=== PATIENT | female | born 1975 | race Caucasian/White ===

== ENCOUNTER 2019-10-23 14:57 | Outpatient (CLI) | payer BC, SELFPAY ==
--- NOTE | ~2019-10-23 | MM_ITS ---
EXAMINATION: MM screening [facility] BI w idris HISTORY: Screening mammogram TECHNIQUE: Craniocaudal and mediolateral oblique 3-D tomosynthesis images were obtained and synthetic 2-D images were generated. CAD analysis was submitted and interpreted. COMPARISON: 05/08/2017 diagnostic right digital mammogram 04/15/2017 bilateral digital screening mammogram BREAST PARENCHYMAL COMPOSITION: There are scattered areas of fibroglandular density. FINDINGS: There is no evidence of suspicious mass, calcification, or architectural distortion to sugg est malignancy in either breast. There has been no suspicious interval change. IMPRESSION: 1. No mammographic evidence of malignancy. 2. Recommend routine screening mammography in one year. BI-RADS Category 1: Negative Reviewed, dictated and finalized at location A.
== END 2019-10-23 14:58 | disposition home or self-care (01) ==
LOC: ANHIMG 15:15
PROVIDERS: PCP Family Medicine; Visit Provider Family Medicine
DX: Z12.31 Encounter for screening mammogram for malignant neoplasm of breast (principal)
CPT/HCPCS: 77063; 77067

== ENCOUNTER → 2020-05-25 13:13 | Outpatient (CLI) | payer BC, SELFPAY ==
--- NOTE | ~2020-05-25 | XR_ITS ---
XR hand RT min 3V DATE: 05/25/2020 13:24 INDICATION: Injury. Pain and swelling. TECHNIQUE: 3 views COMPARISON: None FINDINGS: No fracture or dislocation, periosteal reaction or bone destruction, erosive change or baldo drocalcinosis. Joint spaces are preserved. IMPRESSION: Normal Reviewed, dictated and finalized at location A. CULTURIST IMPRESSION: Normal
== END ==
PROVIDERS: PCP Family Medicine; Visit Provider Family Medicine
DX: S69.81XA Other specified injuries of right wrist, hand and finger(s), initial encounter (principal)
CPT/HCPCS: 73130

== ENCOUNTER 2022-03-08 00:33 | Day surgery (SDC) | payer BC, SELFPAY ==
[2022-02-26 10:54] VITALS: BMI 34.7
[2022-03-08 08:06] VITALS: BP 114/56; PULSE 78; RESP 78; TEMP 36.3; O2SAT 100; BMI 33.5
[2022-03-08] MEDS: LACTATED RINGERS 1,000 ML 150 ML IV CONT (08:19)
--- NOTE | 2022-03-08 08:49 | PM.IMHP ---
H&P: HPI History of Present Illness Date/Time: 03/08/22 08:49 Chief Complaint: GE reflux and neoplasia screening. Narrative: This is a 46-year-old white female patient presents for neoplasia screening colonoscopy. Current weight appetite bowel movements are normal. She denies abdominal pain. She has had no bleeding. Family history noncontributory. Neoplasia screening colonoscopy will be performed today. Patient reports for many years has had heartburn. Typically controlled with Tums. This apparently has intensified she has taken more Tums recently. Several months ago was started on pantoprazole 40mg p.o. daily. Since that happened she had 1 event of nocturnal regurgitation she had digestive juices regurgitate her mouth. She no longer has heartburn. She has no difficulty swallowing. She has had some hoarseness for which she sees ENT. In currently being treated. Family history is noncontributory. She denies any bleeding, Nor weight loss. Review of Systems Review of Systems: review of systems noncontributory. [facility] Past Medical History Medical History Colon cancer screening Dysphonia Globus sensation Obesity Vomiting Surgical History Surgical History Hx of cholecystectomy Family History Family History Father Hypertension Alcoholism Mother Hypertension Diabetes mellitus Grandparent Family history of lymphoma Hypertension Heart disease Social History Social History Smoking status: Never smoker Second hand tobacco smoke exposure: No Alcohol intake: never Substance use: never Substance use type: does not use Living arrangements: with family Additional living arrangements comments: spouse and children Spiritual care concerns: No Meds Home Medications and Allergies Home Medications Medication Instructions Recorded Confirmed Type pantoprazole 40 mg tablet,delayed 40 mg PO QAM 02/02/22 03/07/22 History release sodium,potassium,mag sulfates 17.5 See Rx Instructions PO .COMPLEX 02/08/22 03/07/22 Rx gram-3.13 gram-1.6 gram oral soln #354 mL (Suprep Bowel Prep Kit) fluticasone propionate 50 2 spray intranasal BID #16 mL 03/07/22 03/08/22 Rx mcg/actuation nasal spray,suspension (Flonase Allergy Relief) Allergies Allergy/AdvReac Type Severity Reaction Status Date / Time No Known Allergies Allergy Verified 03/08/22 08:05 Vital Signs Vital Signs - 24 hr 03/08/22 08:06 Temperature 97.3 F L Pulse Rate 78 Respiratory Rate 78 H Blood Pressure 114/56 L Pulse Oximetry 100 Oxygen Delivery Room Air Exam Narrative: Physical exam reveals patient to be alert. Vital signs stable. HEENT exam is unremarkable. Patient is anicteric. Lungs are clear to auscultation and percussion. Heart is without murmur or extra sounds. Abdomen bowel sounds present soft nontender with no organomegaly. Digital external rectal exam is normal. Assessment and Plan Assessment and plan (1) Colon cancer screening: Code(s): Z12.11 - Encounter for screening for malignant neoplasm of colon Status: Acute Assessment and Plan: patient presents for neoplasia screening colonoscopy. Appears to be at average risk for colon polyps. Further recommendations may be given after endoscopy. (2) GERD (gastroesophageal reflux disease): Code(s): K21.9 - Gastro-esophageal reflux disease without esophagitis Status: Acute Assessment and Plan: Patient complains of infrequent nocturnal reflux. History of heartburn well controlled on pantoprazole. EGD is requested will be performed. Continue anti-reflux measures which are reiterated today. Elevate head of bed at night, no late snacks. [place] diet. Pantoprazo
--- NOTE | 2022-03-08 08:54 | WPDANESEPPF ---
Anes - Initial Pre Proc Eval Procedure: Operation Date: 03/08/22 09:00 Proposed Procedures p Esophagogastroduodenoscopy & Screening Colonoscopy - Davidson Herrera MD Date/Time: 03/08/22 08:54 Surgeon: Davidson Herrera MD Pre Op Diagnosis: neoplasm screening, GERD Patient Data Age: 46 Gender: F Height: 1.68 m Weight: 94.3 kg Last Vital Signs Temp 97.3 F L 03/08/22 08:06 Pulse 78 03/08/22 08:06 Resp 78 H 03/08/22 08:06 BP 114/56 L 03/08/22 08:06 Pulse Ox 100 03/08/22 08:06 O2 Del Method Room Air 03/08/22 08:06 Allergies Allergy/AdvReac Type Severity Reaction Status Date / Time No Known Allergies Allergy Verified 03/08/22 08:05 Home Medications Medication Instructions Recorded Confirmed Type pantoprazole 40 mg tablet,delayed 40 mg PO QAM 02/02/22 03/07/22 History release sodium,potassium,mag sulfates 17.5 See Rx Instructions PO .COMPLEX 02/08/22 03/07/22 Rx gram-3.13 gram-1.6 gram oral soln #354 mL (Suprep Bowel Prep Kit) fluticasone propionate 50 2 spray intranasal BID #16 mL 03/07/22 03/08/22 Rx mcg/actuation nasal spray,suspension (Flonase Allergy Relief) Patient hx anesthesia problems: none Family hx anesthesia problems: none Results Review: All pre-operative results and documents have been reviewed as part of the pre-operative evaluation. [facility] Past Medical History Medical History Colon cancer screening Dysphonia Globus sensation Obesity Vomiting Surgical History Surgical History Hx of cholecystectomy Family History Family History Father Hypertension Alcoholism Mother Hypertension Diabetes mellitus Grandparent Family history of lymphoma Hypertension Heart disease Social History Social History Smoking status: Never smoker Second hand tobacco smoke exposure: No Alcohol intake: never Substance use: never Substance use type: does not use Living arrangements: with family Additional living arrangements comments: spouse and children Spiritual care concerns: No Anes - Eval Final PreProcedure Day of Procedure 03/08/22 08:54 Patient weight: obese Heart: regular rate and rhythm Lungs: clear to auscultation Airway: Mallampati scale class II Neurological: alert and oriented Last oral intake: >/= 8 hours ASA classification: II Emergent: no Anesthetic plan: proceed Anesthesia type and monitoring: general GIVS and standard monitoring Results Review: All pre-operative results and documents have been reviewed as part of the pre-operative evaluation. Informed Consent: The patient's anesthetic plan and its attendant risks and benefits were discussed with the patient/family/POA. Questions were solicited and answers provided to the satisfaction of the patient/family/POA.
[2022-03-08] MEDS: BENZOCAINE (*SP) 60 ML SPRAY CAN (HURRICAINE) 1 SPRAY MUCOUS MEM (09:05)
--- NOTE | 2022-03-08 09:17 | SUR.OPER ---
EGD end 909 Colonoscopy start 916
[2022-03-08 09:32] VITALS: BP 111/63; PULSE 76; RESP 22; O2SAT 98
[2022-03-08 09:42] VITALS: BP 111/67; PULSE 71; RESP 19; O2SAT 98
[2022-03-08 09:52] VITALS: BP 130/76; PULSE 75; RESP 20; O2SAT 99
== END 2022-03-08 09:59 | disposition home or self-care (01) ==
PROVIDERS: PCP Family Medicine; Visit Provider Internal Medicine Gastroenterology
PROC: 0DJ08ZZ Inspection of Upper Intestinal Tract, Via Natural or Artificial Opening Endoscopic (ICD-10-PCS; CPT 43235; principal; 2022-03-08 09:00)
DX: Z12.11 Encounter for screening for malignant neoplasm of colon (principal); K64.8 Other hemorrhoids; K57.30 Diverticulosis of large intestine without perforation or abscess without bleeding; K21.00 Gastro-esophageal reflux disease with esophagitis, without bleeding; R49.0 Dysphonia; Z90.49 Acquired absence of other specified parts of digestive tract; E66.9 Obesity, unspecified; Z68.33 Body mass index [BMI] 33.0-33.9, adult
CPT/HCPCS: 45378; 43235; J2704; J7120

== ENCOUNTER 2022-10-29 15:16 | Outpatient (CLI) | payer BC, SELFPAY ==
--- NOTE | ~2022-10-29 | MM_ITS ---
EXAMINATION: MM screening [facility] BI w idris HISTORY: Screening mammogram TECHNIQUE: Craniocaudal and mediolateral oblique 3-D tomosynthesis images were obtained and synthetic 2-D images were generated. CAD analysis was submitted and interpreted. COMPARISON: 10/23/2019, 05/08/2017, 04/15/2017 BREAST PARENCHYMAL COMPOSITION: There are scattered areas of fibroglandular density. FINDINGS: No suspicious mass, calcification, or architectural distortion are identified in either fadi ast to suggest malignancy. There has been no suspicious interval change. IMPRESSION: 1. No mammographic evidence of malignancy. 2. Recommend routine screening mammography in one year. BI-RADS Category 1: Negative Reviewed, dictated and finalized at location A.
== END 2022-10-29 15:17 | disposition home or self-care (01) ==
LOC: ANHIMG 15:19
PROVIDERS: PCP Family Medicine; Visit Provider Family Medicine
DX: Z12.31 Encounter for screening mammogram for malignant neoplasm of breast (principal)
CPT/HCPCS: 77063; 77067

== ENCOUNTER 2025-01-01 09:42 | Outpatient (CLI) | payer BC, SELFPAY ==
--- NOTE | ~2025-01-01 | XR_ITS ---
Right Shoulder Technique: AP and axillary views were obtained. Clinical History: Pain Findings: No fracture or dislocation is seen. Osseous alignment is anatomic. The glenohumeral and acr omioclavicular joint spaces are preserved. Soft tissues are unremarkable. Impression: Unremarkable right shoulder radiographs. Reviewed, dictated and finalized at [facility]. Impression: Unremarkable right shoulder radiographs.
== END 2025-01-01 09:43 | disposition home or self-care (01) ==
PROVIDERS: PCP Nurse Practitioner Family; Visit Provider Nurse Practitioner Family
DX: M25.511 Pain in right shoulder (principal)
CPT/HCPCS: 73030

== ENCOUNTER 2025-03-12 15:03 | Outpatient (CLI) | payer BC, SELFPAY ==
--- NOTE | ~2025-03-12 | MM_ITS ---
EXAMINATION: MM screening [facility] BI w idris HISTORY: Screening TECHNIQUE: Craniocaudal and mediolateral oblique 3-D tomosynthesis images were obtained and synthetic 2-D images were generated. CAD analysis was submitted and interpreted. COMPARISON: Comparison to multiple prior studies sequentially, with oldest reviewed study dated 04/15/2017. BREAST PARENCHYMAL COMPOSITION: Not dense: There are scattered areas of fibroglandular density. FINDINGS: There is no evidence of suspicious mass, calcification, or architectural distortion to suggest malignancy in either breast. There has been no suspicious interval change. IMPRESSION: 1. No mammographic evidence of malignancy. 2. Recommend routine screening mammography in one year. BI-RADS Category 1: Negative Reviewed, dictated and finalized at location B.
== END 2025-03-12 15:04 | disposition home or self-care (01) ==
LOC: ANHFOHIMG 15:04
PROVIDERS: PCP Nurse Practitioner Family; Visit Provider Nurse Practitioner Family
DX: Z01.419 Encounter for gynecological examination (general) (routine) without abnormal findings (principal); Z12.31 Encounter for screening mammogram for malignant neoplasm of breast
CPT/HCPCS: 77063; 77067